=== PATIENT | male | born 1965 | race Caucasian/White ===

== ENCOUNTER → 2020-04-20 | Outpatient (CLI) | payer OTHER ==
[~2020-04-20] MED LIST: CARVEDILOL25 MG PO; LIPITOR80 MG PO; LISINOPRIL10 MG PO; METFORMIN HCL500 M3 PO; MOBIC7.5 M1 PO; OMEPRAZOLE 20 M20 M1 PO; RANEXA1000 MG PO; REMERON15 M2 PO; SPIRONOLACTONE25 MG PO; TERBINAFINE HC250 MG PO; VENLAFAXINE HCL75 M2 PO
== END ==
LOC: M.PC 09:40
PROVIDERS: ATTEND Physical Medicine & Rehabilitation
DX: M50.10 Cervical disc disorder with radiculopathy, unspecified cervical region (principal); M47.22 Other spondylosis with radiculopathy, cervical region; M79.601 Pain in right arm